=== PATIENT | male | born 2000 | race African-American/Black ===

== ENCOUNTER → 2021-10-16 | Emergency (ER) | payer BC, OTHER ==
[~2021-10-16] VITALS: Ht 180.3 cm; Wt 83.0 kg
[2021-10-16 17:05] VITALS: BP 144/88
== END | disposition home or self-care (01) ==
LOC: ER 15:12
DX: S63.501A Unspecified sprain of right wrist, initial encounter (principal); W22.8XXA Striking against or struck by other objects, initial encounter; Y93.89 Activity, other specified; Y92.89 Other specified places as the place of occurrence of the external cause; Y99.8 Other external cause status
CPT/HCPCS: 73110